=== PATIENT | female | born 1960 | race Caucasian/White ===

== ENCOUNTER 2016-04-14 20:49 | Emergency (ER) | payer BC ==
[~2016-04-14] VITALS: Ht 170.2 cm; Wt 83.5 kg
[2016-04-14] MEDS ORDERED: ZOFRAN4 MG PO (21:44)
[2016-04-14] MEDS ORDERED: ATARAX,VISTARIL50 MG PO (21:44)
[2016-04-14 21:49] VITALS: BP 145/86
== END 2016-04-14 21:54 | disposition home or self-care (01) ==
LOC: EME 20:49
DX: F41.0 Panic disorder [episodic paroxysmal anxiety] (principal); R11.10 Vomiting, unspecified
CPT/HCPCS: 99281; 99283; Q0177